=== PATIENT | male | born 1975 | race Caucasian/White ===

== ENCOUNTER 2023-09-25 12:00 | Observation (INO) | payer BC ==
[2023-09-25 12:42] LABS: #Basophils 0.1 10x3/uL (0.0-0.2); #Eosinphils 0.1 10x3/uL (0.0-0.5); #Monocytes 0.7 10x3/uL (0.0-1.1); #Neutrophils 6.5 10x3/uL (1.5-8.4); %Basophils 0.5 % (0.0-2.0); %Eosinophils 0.8 % (0.0-6.0); %Lymphocytes 20.2 % (18.0-47.0); %Monocytes 7.2 % (0.0-10.0); Hematocrit 41.3 % (38.8-50.0); Hemoglobin 14.9 g/dL (13.5-17.5); Mean Corpuscular HGB CONC 36.1 g/dL (32.0-36.0); Mean Corpuscular Hemoglobin 33.8 pg (27.0-33.0); Mean Corpuscular Volume 93.7 fl (81.2-95.1); Mean Platelet Volume 10.4 fl (7.4-10.4); Platelet Count 212 10x3/uL (150-450); RBC Distribution Width 12.6 % (11.5-14.5); Red Blood Cell (RBC) Count 4.41 10x6/uL (4.32-5.72); White Blood Cell (WBC) Count 9.2 10x3/uL (3.5-10.5)
[2023-09-25 12:49] LABS: Bilirubin Neg (Negative); Blood, Urine Negative (Negative); Clarity Clear (Clear); Glucose, Urine (Dipstick) Normal (Negative); Ketone, Urine Negative (Negative); Leukocyte Negative (Negative); Nitrite Negative (Negative); Protein, Urine (Dipstick) Negative (Neg-Trace); Specific Gravity, Urine 1.015 (1.005-1.030); Urobilinogen Normal mg/dL (Less than 2)
[2023-09-25 12:57] LABS: ALT (SGPT) 41 U/L (8-55); AST (SGOT) 19 U/L (5-34); Albumin 4.3 g/dL (3.5-5.0); Alkaline Phosphatase 96 U/L (40-110); Anion Gap 12 mmol/L (10-20); BUN (Urea Nitrogen) 12 mg/dL (8.9-20.6); Bilirubin, Total 1.5 mg/dL (0.2-1.2); Calc. Creatinine Clearance 0 mL/min (70-130); Calcium 9.1 mg/dL (7.8-10.44); Carbon Dioxide 24 mmol/L (22-29); Chloride 107 mmol/L (98-107); Estimated GFR 72; Glucose 86 mg/dL (70-105); Potassium 3.7 mmol/L (3.5-5.1); Protein, Total 7.3 g/dL (6.0-8.3); Sodium 139 mmol/L (136-145)
[2023-09-25 13:02] LABS: Bacteria/HPF None Seen HPF (None Seen); CAUTI Indications for Culture Pelvic or flank pain; RBC/HPF 0-3 HPF (0-3); Squamous Epithelial None Seen HPF (0-3); WBC/HPF None Seen HPF (0-3)
[2023-09-25 13:03] LABS: Urine Culture Reflex No No
[2023-09-25] MEDS ORDERED: Iopamidol 300 61% 100 ML VIAL FS ONE (13:22)
[2023-09-25] MEDS ORDERED: LevoFLOXacin 750 mg/D5W 150 ml Premix Bag ONE (14:54)
[2023-09-25] MEDS ORDERED: metroNIDAZOLE 500 MG (100 mL) BAG ONE (14:55)
[2023-09-25] MEDS ORDERED: Acetaminophen 650 MG Suppository PR PRN (16:11)
[2023-09-25] MEDS ORDERED: Ondansetron PF 4 MG/2 ML Vial IVP PRN (16:11)
[2023-09-25] MEDS ORDERED: Ondansetron ODT 4 MG TAB PO PRN (16:11)
[2023-09-25 19:34] VITALS: BMI 35.3
[2023-09-25] MEDS: metroNIDAZOLE 500 MG in Premix 1 BAG IVPB SCH (21:07)
[2023-09-25] MEDS: Acetaminophen 325 MG TAB PO PRN (21:08)
[2023-09-26 03:50] LABS: #Basophils 0.1 10x3/uL (0.0-0.2); #Eosinphils 0.1 10x3/uL (0.0-0.5); #Monocytes 0.5 10x3/uL (0.0-1.1); #Neutrophils 3.5 10x3/uL (1.5-8.4); %Basophils 0.9 % (0.0-2.0); %Eosinophils 1.7 % (0.0-6.0); %Lymphocytes 27.8 % (18.0-47.0); %Monocytes 8.7 % (0.0-10.0); %Neutrophils 60.6 % (40.0-75.0); Hematocrit 37.8 % (38.8-50.0); Hemoglobin 13.6 g/dL (13.5-17.5); Mean Corpuscular Hemoglobin 33.3 pg (27.0-33.0); Mean Corpuscular Volume 92.6 fl (81.2-95.1); Mean Platelet Volume 10.6 fl (7.4-10.4); Platelet Count 184 10x3/uL (150-450); RBC Distribution Width 12.6 % (11.5-14.5); Red Blood Cell (RBC) Count 4.08 10x6/uL (4.32-5.72); White Blood Cell (WBC) Count 5.8 10x3/uL (3.5-10.5)
[2023-09-26 04:13] LABS: Anion Gap 13 mmol/L (10-20); BUN (Urea Nitrogen) 11 mg/dL (8.9-20.6); Calc. Creatinine Clearance 110 mL/min (70-130); Calcium 8.8 mg/dL (7.8-10.44); Carbon Dioxide 22 mmol/L (22-29); Chloride 107 mmol/L (98-107); Estimated GFR 77; Glucose 90 mg/dL (70-105); Potassium 3.6 mmol/L (3.5-5.1); Sodium 138 mmol/L (136-145)
[2023-09-26 11:24] VITALS: BP 103/61; TEMP 98.1
[2023-09-26] MEDS ORDERED: LevoFLOXacin 750 mg/D5W 750 MG in Premix 1 BAG IVPB SCH (15:00)
== END 2023-09-26 11:34 | disposition home or self-care (01) ==
LOC: CSHERS 12:00 → CSHTELE 16:43
PROVIDERS: ADMIT Hospitalist; ATTEND Internal Medicine
DX: K57.32 Diverticulitis of large intestine without perforation or abscess without bleeding (principal); F17.210 Nicotine dependence, cigarettes, uncomplicated; Z87.442 Personal history of urinary calculi
CPT/HCPCS: 36415; 74177; 80048; 80053; 81001; 83690; 85025; 87040; 96365; 96375; 96376; G0378; J1956; Q9967